=== PATIENT | female | born 1970 | race Two or more races ===

== ENCOUNTER 2022-11-15 05:29 | Emergency (ER) | payer MEDICAID ==
[~2022-11-15] VITALS: Ht 165.1 cm; Wt 103.9 kg
[2022-11-15] MEDS ORDERED: KETOROLAC TROMETH 60MG/2ML VIAL IM ONE (07:00)
[2022-11-15] MEDS ORDERED: IBUP-1456 PO (07:07)
[2022-11-15 07:20] VITALS: BP 150/89; PULSE 79; RESP 16; TEMP 98.8; O2SAT 98
== END 2022-11-15 07:35 | disposition home or self-care (01) ==
LOC: ER 05:29
DX: G44.209 Tension-type headache, unspecified, not intractable (principal); F41.9 Anxiety disorder, unspecified; F32.9 Major depressive disorder, single episode, unspecified
CPT/HCPCS: 70450; 93005; 96372; 99285; J1885

== ENCOUNTER 2023-02-10 09:43 | Emergency (ER) | payer MEDICAID ==
[~2023-02-10] VITALS: Ht 162.6 cm; Wt 104.6 kg
[~2023-02-10 09:43] MED LIST: IBUP-1456 PO
[2023-02-10 10:18] VITALS: BP 147/84; PULSE 100; RESP 19; O2SAT 95
[2023-02-10 10:52] LABS: Basophils # (auto) 0 10 ^3/uL (0-0.2); Basophils % (auto) 0.2 % (0.0-2.0); Eosinophils # (auto) 0 10 ^3/uL (0-0.8); Eosinophils % (auto) 0.4 % (0.0-7.0); Hematocrit 38.4 % (36.0-46.0); Hemoglobin 12.8 g/dL (12.2-16.2); Lymphocytes # (auto) 0.8 10 ^3/uL (0.4-5.4); Lymphocytes % (auto) 10.7 % (10.0-50.0); Mean Corpuscular Hemoglobin 30.6 pg (28.0-32.0); Mean Corpuscular Hgb Conc. 33.4 g/dL (32.0-36.0); Mean Corpuscular Volume 91.5 fL (80.0-100.0); Monocytes # (auto) 0.5 10 ^3/uL (0-1.3); Neutrophils # (auto) 6.3 10 ^3/uL (1.6-8.6); Neutrophils % (auto) 81.7 % (37.0-80.0); Red Blood Cells 4.19 10^6/uL (4.0-5.20); Red Cell Distribution Width 13.3 % (11.8-14.3); White Blood Cell 7.7 10^3/uL (4.4-10.8)
[2023-02-10 11:12] LABS: Alanine Aminotransferase 243 U/L (7-40); Albumin 4.4 g/dL (3.2-4.8); Alkaline Phosphatase 168 U/L (46-116); Anion Gap 7 (5-15); Aspartate Aminotransferase 205 U/L (13-40); BUN/Creatinine Ratio 15.9 (10.0-20.0); Blood Urea Nitrogen 11 mg/dL (9-23); Calcium 8.9 mg/dL (8.7-10.4); Carbon Dioxide 27 mmol/L (20-30); Chloride 102 mmol/L (98-107); Glucose 116 mg/dL (74-106); Lipase 31 U/L (12-53); Potassium 3.2 mmol/L (3.5-5.1); Sodium 136 mmol/L (136-145)
[2023-02-10 11:29] LABS: Urine Bacteria FEW /hpf (None Seen); Urine Blood 1+ /uL (Negative); Urine Clarity HAZY (Clear); Urine Color Brown (Yellow); Urine Protein, UAD 2+ (Negative); Urine Specific Gravity 1.026 (1.001-1.035); Urine WBC 35 /hpf (0 - 5); Urine pH 6.5 (5.0-8.0)
[2023-02-10] MEDS ORDERED: cefTRIAXone SOD 1,000 MG VL IM ONE (11:45)
[2023-02-10] MEDS ORDERED: NITR-87 PO (12:24)
== END 2023-02-10 12:44 | disposition home or self-care (01) ==
LOC: ER 09:43
DX: N39.0 Urinary tract infection, site not specified (principal); R10.2 Pelvic and perineal pain; E80.6 Other disorders of bilirubin metabolism
CPT/HCPCS: 36415; 80053; 81001; 83690; 84702; 85025; 96372; 99283; J0696

== ENCOUNTER 2023-03-28 09:34 | Emergency (ER) | payer MEDICAID ==
[~2023-03-28] VITALS: Ht 165.1 cm; Wt 107.2 kg
[~2023-03-28 09:34] MED LIST changes: +NITR-87 PO
[2023-03-28 10:01] VITALS: BP 136/86; PULSE 63; RESP 18; TEMP 97.6; O2SAT 96
[2023-03-28] MEDS ORDERED: IBUP-1456 PO (10:33)
== END 2023-03-28 10:37 | disposition home or self-care (01) ==
LOC: ER 09:34
DX: S53.402A Unspecified sprain of left elbow, initial encounter (principal); S93.602A Unspecified sprain of left foot, initial encounter; Z79.1 Long term (current) use of non-steroidal anti-inflammatories (NSAID); Z79.899 Other long term (current) drug therapy; W01.0XXA Fall on same level from slipping, tripping and stumbling without subsequent striking against object, initial encounter; Y93.89 Activity, other specified; Y92.89 Other specified places as the place of occurrence of the external cause; Y99.8 Other external cause status
CPT/HCPCS: 73080; 73630